=== PATIENT | male | born 1980 | race Caucasian/White ===

== ENCOUNTER 2017-11-10 12:16 | Inpatient (IN) | payer MEDICAID ==
[~2017-11-10] VITALS: Ht 182.9 cm; Wt 100.0 kg
[~2017-11-10 12:16] MED LIST: ALB0.5UD NEB; ALBU18HF2 INH; ASPI-1 PO; BACL10TA PO; FLUTICASONE NASAL; HYDR-569 PO; KETO5DRO11 EACHEYE; LORA-512 PO; ONDA4TAB6 PO; OXYCODONE 10 MG PO; PANT40TA4 PO; PROM25TA14 PO; TIOT4MIS3 INH; TRAM50TA2 PO; WALKERFR
[2017-11-10 13:54] LABS: BASOPHILS % (AUTO) 0.1 % (0-1); EOSINOPHILS # (AUTO) 0.3 X10'3 (0-0.9); EOSINOPHILS % (AUTO) 4.5 % (0-6); HEMATOCRIT 50.5 % (42.0-52.0); HEMOGLOBIN 16.9 g/dl (14.0-17.9); LYMPHOCYTES # (AUTO) 1.4 X10'3 (1.1-4.8); LYMPHOCYTES % (AUTO) 22.6 % (21-51); MEAN CORPUSCULAR HEMOGLOBIN 31.4 PG (27.0-31.0); MEAN CORPUSCULAR HGB CONC 33.4 % (33.0-36.5); MEAN CORPUSCULAR VOLUME 94.1 FL (78-98); MEAN PLATELET VOLUME 8.3 FL (7.4-10.4); MONOCYTES # (AUTO) 0.5 X10'3 (0-0.9); MONOCYTES % (AUTO) 8.4 % (2-12); NEUTROPHILS # (AUTO) 4.1 X10'3 (1.8-7.7); NEUTROPHILS % (AUTO) 64.4 % (42-75); PLATELET COUNT 276 X10'3 (140-440); RED BLOOD COUNT 5.37 X10'6 (4.70-6.10); RED CELL DISTRIBUTION WIDTH 13.3 % (11.5-14.5); WHITE BLOOD COUNT 6.4 X10'3 (4.5-11.0)
[2017-11-10 14:03] LABS: PROTHROMBIN TIME 10.5 SECONDS (9.0-12.0)
[2017-11-10 14:07] LABS: ALANINE AMINOTRANSFERASE 20 U/L (12-78); ALBUMIN 4.3 G/DL (3.4-5.0); ALKALINE PHOSPHATASE 53 IU/L (46-116); ANION GAP 9 (8-16); ASPARTATE AMINO TRANSFERASE 14 U/L (10-37); BILIRUBIN,TOTAL 0.4 MG/DL (0.1-1.0); BLOOD UREA NITROGEN 12 MG/DL (7-18); BUN/CREATININE RATIO 13.2 (5.4-32.0); CALCIUM 9.7 MG/DL (8.5-10.1); CHLORIDE 104 MMOL/L (99-107); CREATININE 0.91 MG/DL (0.60-1.10); GLUCOSE 102 MG/DL (70-104); POTASSIUM 4.2 MMOL/L (3.5-5.1); SODIUM 142 MMOL/L (135-145); TOTAL CARBON DIOXIDE 29.2 MMOL/L (24-32); TOTAL PROTEIN 8.4 G/DL (6.4-8.2); eGFR > 90 ML/MIN
[2017-11-10 14:40] LABS: CLARITY,URINE Clear (Clear); COLOR,URINE Yellow (Yellow); GLUCOSE, URINE Negative (Neg); KETONES,URINE Negative (Neg); LEUKOCYTE ESTERASE ,URINE Negative (Neg); NITRITES, URINE Negative (Neg); OCCULT BLOOD,URINE Negative (Neg); PH,URINE 5.5 (4.8-8.0); PROTEIN,URINE Negative (Neg); UROBILINOGEN,URINE 0.2 E.U/dL (0.2-1.0)
[2017-11-10] MEDS ORDERED: ondansetron/PF 4mg/2ml inj IV ONE (14:45)
[2017-11-10 14:48] LABS: UA COLLECTION TYPE NON-SPECIFIED
[2017-11-10] MEDS ORDERED: iohexol 300mg/ml 100ml inj. ONE (14:50)
[2017-11-10] MEDS ORDERED: magnesium hydroxide 30ml (MOM) UD suspension PO PRN (16:25)
[2017-11-10] MEDS ORDERED: mag hydrox/Alum hydrox/simeth 30ml oral suspension PO PRN (16:25)
[2017-11-10] MEDS ORDERED: ondansetron/PF 4mg/2ml inj IV PRN (16:25)
[2017-11-10] MEDS ORDERED: acetaminophen 325mg tablet PO PRN (16:25)
[2017-11-10] MEDS ORDERED: hydrocortisone acetate 25mg rectal suppository RC PRN (16:35)
[2017-11-10] MEDS: normal saline 1000ml 1,000 ML IV SCH (16:53)
[2017-11-10] MEDS: HYDROcodone/acetaminophen 5mg/325mg tablet PO PRN (19:13)
[2017-11-10 19:15] VITALS: BP 146/98
[2017-11-10 23:00] VITALS: BP 138/75
[2017-11-11] MEDS: HYDROcodone/acetaminophen 5mg/325mg tablet PO PRN ×3 (00:31→11:39)
[2017-11-11] MEDS: normal saline 1000ml 1,000 ML IV SCH ×2 (02:36→12:25)
[2017-11-11 07:06] VITALS: BP 110/66
[2017-11-11] MEDS ORDERED: ANUHCR RC (10:30)
[2017-11-11 12:32] VITALS: BP 131/71
== END 2017-11-11 13:30 | disposition home or self-care (01) | DRG 254 ==
LOC: ER 12:17 → ED HOLD 16:22 → EDBEDREQ 18:23 → MED 3N 19:00
PROVIDERS: ADMIT Family Medicine; ATTEND Family Medicine
PROC: BW211ZZ Computerized Tomography (CT Scan) of Abdomen and Pelvis using Low Osmolar Contrast (ICD-10-PCS; principal; 2017-11-10)
DX: K64.5 Perianal venous thrombosis (principal); G89.29 Other chronic pain; K40.90 Unilateral inguinal hernia, without obstruction or gangrene, not specified as recurrent; Z88.0 Allergy status to penicillin; Z88.1 Allergy status to other antibiotic agents; Z79.82 Long term (current) use of aspirin; Z79.899 Other long term (current) drug therapy
CPT/HCPCS: 36415; 74177; 80053; 81003; 85025; 85610; 87070; 93005; 96374; 99285; J2270; J2405; J7030; Q9967

== ENCOUNTER 2018-03-05 19:42 | Emergency (ER) | payer MEDICAID ==
[~2018-03-05] VITALS: Ht 182.9 cm; Wt 101.7 kg
[~2018-03-05 19:42] MED LIST changes: +ANUHCR RC; -ASPI-1 PO; -FLUTICASONE NASAL; -HYDR-569 PO; -ONDA4TAB6 PO; -OXYCODONE 10 MG PO; -PROM25TA14 PO; -TIOT4MIS3 INH; -TRAM50TA2 PO; -WALKERFR
[2018-03-05 20:25] LABS: BASOPHILS % (AUTO) 0 % (0-1); EOSINOPHILS # (AUTO) 0.1 X10'3 (0-0.9); EOSINOPHILS % (AUTO) 0.7 % (0-6); HEMATOCRIT 48.7 % (42.0-52.0); HEMOGLOBIN 16.5 g/dl (14.0-17.9); LYMPHOCYTES # (AUTO) 0.8 X10'3 (1.1-4.8); LYMPHOCYTES % (AUTO) 10.4 % (21-51); MEAN CORPUSCULAR HEMOGLOBIN 31.9 PG (27.0-31.0); MEAN CORPUSCULAR VOLUME 93.8 FL (78-98); MEAN PLATELET VOLUME 8.4 FL (7.4-10.4); MONOCYTES # (AUTO) 0.1 X10'3 (0-0.9); MONOCYTES % (AUTO) 1.6 % (2-12); NEUTROPHILS # (AUTO) 6.8 X10'3 (1.8-7.7); NEUTROPHILS % (AUTO) 87.3 % (42-75); PLATELET COUNT 303 X10'3 (140-440); RED BLOOD COUNT 5.19 X10'6 (4.70-6.10); RED CELL DISTRIBUTION WIDTH 13.8 % (11.5-14.5); WHITE BLOOD COUNT 7.8 X10'3 (4.5-11.0)
[2018-03-05 20:40] LABS: PARTIAL THROMBOPLASTIN TIME 28 SECONDS (22-32); PROTHROMBIN TIME 10.4 SECONDS (9.0-12.0)
[2018-03-05 20:45] LABS: ALANINE AMINOTRANSFERASE 23 U/L (12-78); ALBUMIN 4.4 G/DL (3.4-5.0); ALKALINE PHOSPHATASE 62 IU/L (46-116); ANION GAP 11 (8-16); ASPARTATE AMINO TRANSFERASE 15 U/L (10-37); BILIRUBIN,TOTAL 0.4 MG/DL (0.1-1.0); BLOOD UREA NITROGEN 19 MG/DL (7-18); CALCIUM 9.7 MG/DL (8.5-10.1); CHLORIDE 103 MMOL/L (99-107); GLUCOSE 150 MG/DL (70-104); POTASSIUM 4.1 MMOL/L (3.5-5.1); SODIUM 141 MMOL/L (135-145); TOTAL CARBON DIOXIDE 27.1 MMOL/L (24-32); TOTAL PROTEIN 8.7 G/DL (6.4-8.2); eGFR 84 ML/MIN
[2018-03-05 22:10] VITALS: BP 123/79
[2018-03-05] MEDS ORDERED: clindamycin 150mg capsule PO ONE (23:20)
[2018-03-05] MEDS ORDERED: ketorolac trometh. 30mg/ml inj. IM ONE (23:20)
[2018-03-05] MEDS ORDERED: CLIN-80 PO (23:20)
== END 2018-03-05 23:45 | disposition home or self-care (01) ==
LOC: ER 19:44
DX: K08.89 Other specified disorders of teeth and supporting structures (principal); R07.89 Other chest pain; R06.02 Shortness of breath; M54.2 Cervicalgia; G89.29 Other chronic pain; Z98.890 Other specified postprocedural states; Z88.0 Allergy status to penicillin; Z88.8 Allergy status to other drugs, medicaments and biological substances; Z79.899 Other long term (current) drug therapy
CPT/HCPCS: 36415; 71045; 80053; 84484; 85025; 85610; 85730; 93005; 96372; 99285; J1885

== ENCOUNTER 2019-01-05 11:11 | Emergency (ER) | payer MEDICAID ==
[~2019-01-05] VITALS: Ht 182.9 cm; Wt 100.0 kg
[2019-01-05 13:15] LABS: BASOPHILS % (AUTO) 0.5 % (0-1); EOSINOPHILS # (AUTO) 0.3 X10'3 (0-0.9); EOSINOPHILS % (AUTO) 3.2 % (0-6); HEMATOCRIT 48.7 % (42.0-52.0); HEMOGLOBIN 16.4 g/dl (14.0-17.9); LYMPHOCYTES # (AUTO) 1.5 X10'3 (1.1-4.8); LYMPHOCYTES % (AUTO) 18.1 % (21-51); MEAN CORPUSCULAR HEMOGLOBIN 31.8 PG (27.0-31.0); MEAN CORPUSCULAR HGB CONC 33.6 g/dL (33.0-36.5); MEAN CORPUSCULAR VOLUME 94.6 FL (78-98); MEAN PLATELET VOLUME 8.6 FL (7.4-10.4); MONOCYTES # (AUTO) 1.2 X10'3 (0-0.9); MONOCYTES % (AUTO) 14.6 % (2-12); NEUTROPHILS # (AUTO) 5.1 X10'3 (1.8-7.7); NEUTROPHILS % (AUTO) 63.6 % (42-75); PLATELET COUNT 302 X10'3 (140-440); RED BLOOD COUNT 5.15 X10'6 (4.70-6.10); RED CELL DISTRIBUTION WIDTH 13.9 % (11.5-14.5); WHITE BLOOD COUNT 8.1 X10'3 (4.5-11.0)
[2019-01-05 13:22] LABS: ALANINE AMINOTRANSFERASE 17 U/L (12-78); ALBUMIN 4.2 G/DL (3.4-5.0); ALKALINE PHOSPHATASE 54 IU/L (46-116); ANION GAP 11 (8-16); ASPARTATE AMINO TRANSFERASE 15 U/L (10-37); BILIRUBIN,TOTAL 0.4 MG/DL (0.1-1.0); BLOOD UREA NITROGEN 10 MG/DL (7-18); BUN/CREATININE RATIO 9.1 (5.4-32.0); CALCIUM 9.2 MG/DL (8.5-10.1); CHLORIDE 99 MMOL/L (99-107); GLUCOSE 103 MG/DL (70-104); POTASSIUM 3.8 MMOL/L (3.5-5.1); SODIUM 138 MMOL/L (135-145); TOTAL CARBON DIOXIDE 27.7 MMOL/L (24-32); TOTAL PROTEIN 8.6 G/DL (6.4-8.2); eGFR 75 ML/MIN
[2019-01-05 14:11] VITALS: BP 115/56
--- NOTE | 2019-01-05 14:28 | NUR ---
[employer] went in to room to draw blood. Pt refuses. Went in to room to speak with pt. He became agitated and started cursing. Pt left AMA and did not sign paperwork.
[2019-01-05] MEDS ORDERED: benzonatate 100mg capsule PO ONE (14:35)
[2019-01-05] MEDS ORDERED: ipratropium/albuterol 3ml nebule NEB ONE (14:35)
== END 2019-01-05 14:32 | disposition left against medical advice (07) ==
LOC: ER 11:11
DX: J06.9 Acute upper respiratory infection, unspecified (principal); J98.01 Acute bronchospasm; G89.29 Other chronic pain; Z88.1 Allergy status to other antibiotic agents; Z88.0 Allergy status to penicillin
CPT/HCPCS: 36415; 71045; 80053; 85025; 93005; 99284

== ENCOUNTER 2025-09-17 17:35 | Emergency (ER) | payer MEDICAID ==
[~2025-09-17] VITALS: Ht 185.4 cm; Wt 109.1 kg
[~2025-09-17 17:35] MED LIST changes: +KETO-96 EACHEYE; -KETO5DRO11 EACHEYE; -PANT40TA4 PO; +PANT40TA54 PO
[2025-09-17 17:41] VITALS: BP 153/106; PULSE 92; TEMP 98; O2SAT 99
[2025-09-17 18:10] VITALS: RESP 18
--- NOTE | 2025-09-17 18:30 | RADIOLOGY REPORT ---
EXAM: DI KNEE, COMP 4 VW MIN INDICATION: KNEE PAIN TECHNIQUE: 3 views of the right knee COMPARISON: None FINDINGS/IMPRESSION: No radiographic evidence of an acute osseous abnormality. There is no acute fracture, osseous malalignment, or aggressive focal osseous lesion. Unicompartmental medial weight-bearing compartment arthroplasty. No osseous lucency along the hardware bone interfaces. No perihardware fracture. Small knee joint effusion. Chondrocalcinosis along the lateral meniscus.
--- NOTE | 2025-09-17 19:16 | Physician Documentation ---
History of Present Illness ~ Chief Complaint: Medical Clearance Stated Complaint: MED CLEARANCE Time Seen by MD: 18:32 Primary Medical Doctor: Jerod Mode of Arrival: Police HPI 45-year-old male that presents to the emergency department in custody of [facility] department for evaluation of injuries sustained during arrest. Patient reports that he struggled during arrest fell to his right side. Patient reports minor bruising but no significant pain. Patient not lose consciousness patient has no chest pain or shortness of breath no significant pain in any of his extremities patient is a alert and oriented with a GCS of 15 at this time. Tetanus within 5 years?: Yes Medication Reconciliation Allergies: Coded Allergies: amoxicillin (Verified Allergy, Mild, RASH, 03/05/18) Penicillins (Verified Adverse Reaction, Mild, FEELS SICK/RASH, 03/05/18) Scheduled Albuterol Sulfate (Ventolin Hfa), 2 PUFFS INH Q4HPRN, (Reported) Ketotifen Fumarate (Ketotifen Fumarate), 2 DROP EACHEYE DAILY, (Reported) Loratadine* (Alavert*), 1 TAB PO DAILY, (Reported) Pantoprazole Sodium (Pantoprazole Sodium), 40 MG PO BID, (Reported) Scheduled PRN Albuterol Sulfate* (Proventil Neb*), 2.5 MG NEB Q6H PRN for SOB or wheezing, (Reported) Baclofen (Baclofen), 2 TAB PO Q12H PRN for AD, (Reported) Hydrocortisone Acetate (Anucort-Hc), 25 MG RC Q8H PRN for itching Past Medical History Past Medical History: Asthma, Hemorrhoids, Chronic Pain Past Surgical History: noncontributory, orthopedic surgeries Patient History: Patient reports no known family medical history. Alcohol Use: None Drug Use: none Lives with: Family Lives In: Home Review of Systems ROS As stated above in the HPI, otherwise all systems are reviewed and negative. Physical Exam Vital Signs: Temperature: 98.0, Source: Temporal, Heart Rate: 92, Respiratory Rate: 18, BP: 153/106, Pulse Oximetry: 99, Weight: 109.090 Oxygen Flow Rate: 0 Physical Exam VITALS: Reviewed and as above. GENERAL: Alert, no apparent distress. HEENT: Normocephalic, atraumatic, PERRL, EOMI, dry mucosa, no erythema RESPIRATORY: Lungs clear, normal breath sounds, no respiratory distress. CHEST: No accessory muscle use, no retractions CV: Regular rate, rhythm, no edema, no murmur, No: JVD GI: Soft, non-tender, bowels sounds present, no rebound, guarding, or rigidity BACK: No CVA tenderness, or swelling MUSCULOSKELETAL No deformities, slight bruising with superficial abrasions noted to the right upper extremity and right lower extremity, range of motion intact during examination. SKIN: Warm and dry, no rash, superficial bruising and abrasions noted to the right upper extremity right lower extremity range of motion intact during exami [facility]. NEURO: Oriented x4, No motor or sensory deficit PSYCH: Normal mood and affect, no agitation Progress Results/Orders Results/Orders Orders - DERRICK HOANG A [employer] Forearm,Incl.One Joint (09/17/25 18:53) Completed Orders - NATALIA HOANGFER A [employer] SAL[employer] ADVISOR Forearm,Incl.One Joint (09/17/25 18:53) Vital Signs 09/17/25 09/17/25 17:41 18:10 Temp 98.0 Pulse 92 Resp 18 18 B/P (MAP) 153/106 Pulse Ox 99 O2 Flow Rate 0 Medical Decision Making Additional information obtaine: other Findings 45-year-old male presented to the emergency department in custody of [facility] Department for evaluation of injuries sustained during arrest. Patient reports struggling during arrest and falling onto his right side. He endorses minor bruising but denies significant pain, loss of consciousness, chest pain, shortness of breath, or extremity pain. On evaluation, he is alert and oriented, with a Zamzam Coma Scale (GCS) score of 15. History: History obtained primarily from the patient, consistent with best practice for patients in custody. No collateral history required. No information regarding the circumstances of arrest or alleged offense was solicited, in accordance with ACEP guidelines to avoid bias and further stigmatization. Physical Exam: Patient was appropriately draped during examination. Minor right- sided bruising noted; no evidence of significant trauma, deformity, or neurovascular compromise. No signs of head injury, altered mental status, or focal neurological deficit. No chest wall tenderness or respiratory distress. Radiologic Studies: All radiologic diagnostic studies performed during this ED visit, including imaging of the head and right-sided injuries, are negative for any acute injury or abnormality. Clinical Decision-Making: Patient demonstrates decision-making capacity and is able to participate in shared decision-making regarding care and disposition. No indication for further imaging or extended observation, as there are no high- risk features for intracranial injury, and GCS is 15 without concerning symptoms. Negative imaging further supports safe discharge. No need for admissio n per ACEP recommendations, as there is no concern for progression of injury or need for frequent observation. Disposition: Patient is medically stable for discharge back to law enforcement custody. Discharge instructions provided regarding signs and symptoms that should prompt re-evaluation (worsening pain, neurological changes, chest pain, shortness of breath). Law enforcement officers were informed only of the necessary health information to ensure appropriate follow-up and aftercare, in accordance with privacy and security guidelines. No additional medical interventions required at this time. MDM Justification: The patients presentation, exam, negative radiologic studies, and clinical course do not warrant further diagnostic workup or hospital admission. Documentation avoids stigmatizing language and is limited to medically relevant details, per ACEP guidelines. Patient retains autonomy in medical decision-making, and no surrogate decision-maker was required. Differential Dx:Considerations: Include: Intoxication-Alcohol, Intoxication- Other drug, Personality disorder, Substance abuse disorder, Acute delirium, Closed head injury, Cervical spine injury, Skull fracture, Fracture(s), Abrasion, Contusion, Foreign body, Hematoma, Laceration, Alcohol withdrawl syndrom, Encephalopathy, Hepatitis, Medically stable, Other Departure Disposition: 01 HOME / SELF CARE / HOMELESS Impression: Primary Impression: General medical exam Condition: Stable Discharge Instructions: Medical Screening Exam Additional Instructions: Discharge Instructions for Patient in Police Custody Patient Name: [Redacted for privacy] Date of Discharge: [Insert date] Receiving Agency: [facility] Summary of ED Evaluation: The patient was evaluated in the emergency department following minor trauma sustained during arrest. The patient is alert, oriented, and has a Zamzam Coma Scale of 15. Physical examination revealed minor right-sided bruising without evidence of significant injury. All radiologic studies performed were negative for acute injury. Medical Clearance Statement for Law Enforcement: Based on the emergency department evaluation and negative imaging, the patient is medically cleared for incarceration at this time. No acute medical needs require hospital-level care. The patient is stable for transfer to the correctional facility. Instructions for Correctional Facility Staff: Monitor for any new or worsening symptoms, including severe pain, confusion, loss of consciousness, chest pain, shortness of breath, or neurological changes. If any of these symptoms develop, the patient should be promptly re-evaluated by medical staff or returned to the emergency department. Ensure access to routine medical care and follow-up as indicated by facility protocols. Instructions for the Patient (to be delivered verbally): You have been evaluated and do not have any serious injuries at this time. If you notice new pain, confusion, trouble breathing, chest pain, or any other concerning symptoms, tell the correctional staff right away so you can get medical help. You may have some bruising and soreness, which should improve over the next few days. If you are released from custody, follow up with your primary care provider for any ongoing concerns. Additional Notes: All discharge instructions have been communicated in accordance with best practices for transitions of care in incarcerated populations. Medical records and care recommendations have been shared with correctional facility staff as permitted by law and policy. Contact Information: For questions regarding this discharge or follow-up care, please contact the emergency department at [ED contact number]. Referrals: NO PRIMARY CARE PROVIDER (PCP) Education Educated: Patient Educated regarding: diagnosis, treatment, need for follow up Signature Scribe Signature: A Attestation: Scribed for Derrick Hoang by CORINNE Rivera . 09/17/25 19:26 DERRICK HOANG Sep 17, 2025 19:16
--- NOTE | 2025-09-17 19:20 | RADIOLOGY REPORT ---
EXAM: DI FOREARM,INCL.ONE JOINT INDICATION: Pain TECHNIQUE: 2 views of the right forearm COMPARISON: None FINDINGS/IMPRESSION: No radiographic evidence of an acute osseous abnormality. There is no acute fracture, osseous malalignment, or aggressive focal osseous lesion.
== END 2025-09-17 19:56 | disposition home or self-care (01) ==
LOC: ER 17:36
DX: Z00.00 Encounter for general adult medical examination without abnormal findings (principal); J45.909 Unspecified asthma, uncomplicated; Z88.0 Allergy status to penicillin
CPT/HCPCS: 73090; 73564; 99284